=== PATIENT | male | born 1950 ===

== ENCOUNTER 2023-11-10 06:02 | Day surgery (SDC) | payer OTHER ==
[2023-11-10] MEDS ORDERED: fentaNYL CITRATE 50 MCG/ML AMPUL IV PUSH ONE (08:15)
[2023-11-10] MEDS ORDERED: DIPHENHYDRAMINE HCL 50 MG/ML VIAL 1ML IV ONE (08:15)
[2023-11-10] MEDS ORDERED: MIDAZOLAM HCL 2 MG/2 ML VIAL IV ONE (08:15)
== END 2023-11-10 10:25 | disposition home or self-care (01) ==
LOC: AMB-ENDOS 06:02
PROVIDERS: ATTEND Colon & Rectal Surgery
DX: K63.5 Polyp of colon (principal); K57.30 Diverticulosis of large intestine without perforation or abscess without bleeding; Z88.0 Allergy status to penicillin

== ENCOUNTER 2024-04-29 09:39 | Outpatient (CLI) | payer OTHER | END 2024-04-29 09:54 | disposition home or self-care (01) | LOC: TOM 09:39 | PROVIDERS: ATTEND Obstetrics & Gynecology Maternal & Fetal Medicine | DX: R10.9 Unspecified abdominal pain (principal); R07.9 Chest pain, unspecified ==

== ENCOUNTER 2025-01-31 06:30 | Day surgery (SDC) | payer OTHER ==
[2025-01-31] MEDS ORDERED: MIDAZOLAM HCL 2 MG/2 ML VIAL IV ONE (08:30)
[2025-01-31] MEDS ORDERED: DIPHENHYDRAMINE HCL 50 MG/ML VIAL 1ML IV ONE (08:30)
[2025-01-31] MEDS ORDERED: fentaNYL CITRATE 50 MCG/ML AMPUL IV PUSH ONE (08:30)
== END 2025-01-31 10:00 | disposition home or self-care (01) ==
LOC: AMB-ENDOS 06:30
PROVIDERS: ATTEND Colon & Rectal Surgery
DX: D12.4 Benign neoplasm of descending colon (principal); K63.5 Polyp of colon; K57.30 Diverticulosis of large intestine without perforation or abscess without bleeding; Z86.0101 Personal history of adenomatous and serrated colon polyps

== ENCOUNTER 2025-03-30 09:03 | Outpatient (CLI) | payer OTHER | END 2025-03-30 09:05 | disposition home or self-care (01) | LOC: SONOGRAMA 09:03 | DX: Z12.39 Encounter for other screening for malignant neoplasm of breast (principal) ==